=== PATIENT | male | born 1995 | race Caucasian/White ===

== ENCOUNTER 2023-09-17 23:30 | Emergency (ER) | payer SELFPAY ==
[~2023-09-17] VITALS: Ht 185.4 cm; Wt 97.5 kg
[2023-09-17 23:34] VITALS: BP 116/95; PULSE 103; RESP 14; TEMP 97.2; O2SAT 98
== END 2023-09-18 00:48 | disposition home or self-care (01) ==
LOC: MED 23:30
DX: F10.129 Alcohol abuse with intoxication, unspecified (principal); E11.9 Type 2 diabetes mellitus without complications; V43.52XA Car driver injured in collision with other type car in traffic accident, initial encounter; Y93.89 Activity, other specified; Y92.411 Interstate highway as the place of occurrence of the external cause; Y99.8 Other external cause status
CPT/HCPCS: 99283